=== PATIENT | female | born 1955 | race Caucasian/White ===

== ENCOUNTER 2018-07-11 11:52 | Emergency (ER) | payer MEDICARE, BC ==
[2018-07-11] MEDS ORDERED: Ondansetron 4 MG/2 ML SDV IVPUSH ONE (12:27)
[2018-07-11] MEDS ORDERED: Sodium Chloride 0.9% 1,000 ML IV SCH (12:30)
--- NOTE | 2018-07-11 12:31 | EDM.PDOC ---
ED HPI GENERAL MEDICAL PROBLEM - General Chief Complaint: Syncope Stated Complaint: [facility] Time Seen by Provider: 07/11/18 12:20 Source of Information: Reports: Patient, Family (spouse) History Limitations: Reports: No Limitations - History of Present Illness INITIAL COMMENTS - FREE TEXT/NARRATIVE: 63-year-old female presents to the ED per [facility]. The history suggests that she went to the [facility] this morning for routine checkup primarily for fasting blood work for cholesterol and blood sugars. She was sitting up in the chair in the lab at about 1015 hrs. and had multiple pokes and only half as much blood as required was obtained. During this time she started to feel very unwell with lightheadedness dizziness a feeling of spinning and she asked them to stop the phlebotomy. She then got very diaphoretic sweaty and nearly lost consciousness. I.e. near syncope. They were able to get her to a gurney but every time she tried to sit up she got a head barillas pressure discomfort and associated nausea. Blood pressure apparently dropped as low as 65 systolic likely from the increased vagal tone. Paramedics were called and an IV was established in clinic. She socially he has had about 800 mils of normal saline infused and is feeling somewhat better. Still feels shaky and weak likely from adrenaline surge. She is still mildly nauseated. She feels very thirsty. Note she has a prediabetic and takes metformin 500 mg twice daily. She has been fasting since essentially yesterday at noon. She had a fudgesickle and an apple for supper last night. En route to the hospital she felt like she was going to lose control of her bowels for a while as well. This is now gone away. She reports she fainted once in the past after donating blood. This occurred after she given the full bag of blood she had a syncopal event. Onset: Today Onset Date: 07/11/18 Onset Time: 10:45 Duration: Minutes: Location: Reports: Generalized (Near syncopal event after multiple attempts at phlebotomy in [facility] Quality: Reports: Other (Associated nausea shakiness feeling like her bowels are going to move head pressure/headache when she sits up.) Severity: Moderate Improves with: Reports: Other (1 still with eyes closed seems to be helped the best.) Worsens with: Reports: Other (Sitting up and movement seem to make things worse) Context: Reports: Other (Symptoms developed well multiple attempts at phlebotomy were being done by earth science laboratory technician in [facility] Denies: Activity, Exercise, Lifting, Sick Contact, Trauma Associated Symptoms: Reports: Confusion, Headaches, Loss of Appetite, Malaise, Nausea/Vomiting, Weakness. 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 below) (No medications) - Related Data Allergies Allergy/AdvReac Type Severity Reaction Status Date / Time No Known Allergies Allergy Verified 07/11/18 12:05 Home Meds: Home Meds Aspirin [Aspirin EC] 325 mg PO DAILY 07/11/18 [History] Cholecalciferol (Vitamin D3) [Vitamin D3] 2,000 mg PO DAILY 07/11/18 [History] Cyanocobalamin (Vitamin B-12) [Vitamin B12] 5,000 mcg SL DAILY 07/11/18 [History ] Fish Oil/Kerby-3 Fatty Acids [Fish Oil 1,000 MG] 1,000 mg PO DAILY 07/11/18 [ History] Lutein 20 mg PO DAILY 07/11/18 [History] Magnesium Citrate 150 mg PO DAILY 07/11/18 [History] Vitamin B6-pyridOXINE 100 mg PO DAILY 07/11/18 [History] metFORMIN HCl [Metformin HCl] 500 mg PO BID 07/11/18 [History] Past Medical History Cardiovascular History: Reports: High Cholesterol, Hypertension Endocrine/Metabolic History: Reports: Diabetes, Type II (Prediabetic at this time according to the patient. Taking metformin 500 mg twice a day.), Osteopenia , Vitamin D Deficiency Hematologic History: Reports: B12 Deficiency Social & Family History - Living Situation & Occupation Living situation: Reports: Occupation: Unemployed ED ROS GENERAL - Review of Systems Review Of Systems: See Below Constitutional: Reports: Malaise, Weakness, Fatigue, Diaphoresis, Decreased Appetite, Other (Still feels shaky and mildly nauseated.) Respiratory: Denies: Shortness of Breath, Wheezing, Pleuritic Chest Pain, Cough , Sputum Cardiovascular: Reports: Lightheadedness, Other (Near syncopal event this morning which was likely vasovagal in origin as she was being pulled multiple times by rope twisting machine operator trying to obtain blood sample in [facility] Denies: Chest Pain, Blood Pressure Problem, Claudication, Dyspnea on Exertion, Edema, Orthopnea Endocrine: Reports: Fatigue GI/Abdominal: Reports: Decreased Appetite, Nausea. Denies: Vomiting : Reports: No Symptoms Musculoskeletal: Reports: No Symptoms Skin: Reports: Other (Apparently was very pallid and diaphoretic when paramedics arrived) Neurological: Reports: Confusion, Dizziness, Tremors (Feels shaky.), Weakness, Other. Denies: Headache, Numbness, Tingling Psychiatric: Reports: No Symptoms Hematologic/Lymphatic: Reports: No Symptoms Immunologic: Reports: No Symptoms - Physical Exam Exam: See Below Exam Limited By: No Limitations General Appearance: Alert, WD/WN, Anxious (Remains quite anxious.), Moderate Distress Eye Exam: Bilateral Eye: Normal Inspection, PERRL Throat/Mouth: Normal Inspection, Normal Lips, Normal Teeth, Normal Oropharynx, Other Head Exam: Atraumatic (Tongue is mildly dry), Normocephalic Neck: Normal Inspection, Supple, Non-Tender, Full Range of Motion. No: Carotid Bruit, Lymphadenopathy (L), Lymphadenopathy (R) Respiratory/Chest: No Respiratory Distress, Lungs Clear, Normal Breath Sounds, No Accessory Muscle Use Cardiovascular: Normal Peripheral Pulses, Regular Rate, Rhythm, No Edema, No Gallop, No Murmur, No Rub GI/Abdominal: Normal Bowel Sounds, Soft, Non-Tender, No Organomegaly, No Abnormal Bruit, No Mass, Pelvis Stable Neuro Exam (Abbreviated): Alert, Oriented, CN II-XII Intact, Normal Cognition, No Motor/Sensory Deficits Extremities: Normal Inspection, Normal Range of Motion, Non-Tender, Normal Capillary Refill Psychiatric: Anxious Skin Exam: Warm, Dry, Intact, Normal Color, No Rash EKG INTERPRETATION EKG Date: 07/11/18 Time: 12:53 Rhythm: NSR Rate (Beats/Min): 69 Verdigre: LAD-Left Verdigre Deviation (Mild left axis deviation of -19) P-Wave: Present QRS: Other (RSR prime wave V1 normal variant.) ST-T: Normal QT: Normal EKG Interpretation Comments: Borderline ECG Course - Vital Signs Last Recorded V/S: Last Vital Signs Temp 35.8 C 07/11/18 11:52 Pulse 60 07/11/18 11:52 Resp 16 07/11/18 11:52 BP 110/77 07/11/18 11:52 Pulse Ox 97 07/11/18 11:52 Orthostatic Blood Pressure [ 131/66 Standing] Orthostatic Blood Pressure [ 128/62 Sitting] Orthostatic Blood Pressure [ 112/56 Supine] - Orders/Labs/Meds Orders: Active Orders 24 hr Category Date Time Status Blood Glucose Check, Bedside [RC] ONETIME Care 07/11/18 12:41 Active EKG Documentation Completion [RC] STAT Care 07/11/18 12:33 Active Sodium Chloride 0.9% [Normal Saline] 1,000 ml Med 07/11/18 12:30 Active IV ASDIRECTED Medication Orders Sodium Chloride (Normal Saline) 1,000 mls @ 999 mls/hr IV ASDIRECTED SAM Labs: Laboratory Tests 07/11/18 Range/Units 12:45 POC Glucose 94 (80-115) mg/dL Meds: Medications Generic Name Dose Route Start Last Admin Trade Name Freq PRN Reason Stop Dose Admin Sodium Chloride 1,000 mls @ 999 mls/hr 07/11/18 12:30 Normal Saline IV ASDIRECTED SAM Discontinued Medications Generic Name Dose Route Start Last Admin Trade Name Freq PRN Reason Stop Dose Admin Ondansetron HCl 4 mg 07/11/18 12:27 07/11/18 12:38 Zofran IVPUSH 07/11/18 12:28 4 mg ONETIME ONE Administration - Radiology Interpretation Free Text/Narrative:: 63-year-old female presents the ED after a near syncopal event occurred in the [facility] this morning where she was receiving multiple needle sticks for phlebotomy. They didn't get enough blood to complete all of the tests and she states she was poked about 7 times. During this event she started to feel very unwell with nausea broke out in a sweat vision became DM and blurred and she felt the room spinning. She then had to lie down flat and remembers everything therefore she did not lose consciousness completely. Then able to move her over to a gurney. She continued to feel unwell today nausea without any vomiting. She drank 2 glasses of water while on the gurney. Blood pressure apparently dropped to as low 65 systolic likely from high vagal tone. Paramedics were called and they were able to get an IV in the right dorsal hand. Patient at the time I'd seen her in the ED has received close to 800 mils of normal saline is feeling markedly improved. She still feels mildly shaky likely from adrenaline surge and mildly nauseated. She will be given water to drink and crackers. Zofran 4 mg IV. I'm not going to do any labs since I'm convinced this is all due to increased vagal tone. Bedside blood sugar will be ordered and an ECG. - Re-Assessments/Exams Free Text/Narrative Re-Assessment/Exam: 07/11/18 13:23 patient is completed liter of IV fluids. She is not orthostatic and is feeling much improved. Nurses also gave her in addition to crackers and fluids some pudding which she kept down without any problem. The only medication I had administered with Zofran 4 mg IV. Her color is improved her blood pressure is stable and her vital signs are stable. She will therefore be discharged home in the care of her . Departure - Departure Time of Disposition: 13:20 Disposition: Home, Self-Care 01 Condition: Fair Clinical Impression: Vasovagal near syncope - Discharge Information *PRESCRIPTION DRUG MONITORING PROGRAM REVIEWED*: Not Applicable *COPY OF PRESCRIPTION DRUG MONITORING REPORT IN PATIENT RAISSA: Not Applicable Instructions: Near-Syncope, [id number] Referrals: Yadira Storm NP [Primary Care Provider] - Forms: ED Department Discharge Additional Instructions: Evaluation in the emergency him today in regards to near syncopal event that occurred while in the [facility] this morning after multiple attempts at phlebotomy to try and obtain blood for sampling. Combined with prolonged fasting and likely a low blood sugar he developed only called vasovagal near-syncope. Is Macdonald with a combination of pain, low blood pressure and low blood sugar this precipitated the vagal reflex which lowers her heart rate in the lower sugar blood pressure associated with nausea, diaphoresis or sweating dizziness, lightheadedness and sometimes complete loss of consciousness. Your symptoms improve when she got a liter of IV fluids and a little bit of food to increase your blood sugar. Blood sugar in the ED was 94. ECG tracing was normal. Blood pressure remained in the normal range while in the ED at 122/55. Just going and having 7-8 at this time and plenty of fluids today such as Gatorade or Powerade even though it contains a little bit of sugar. This is very similar to IV fluid replacement therapy. You're going to have blood work faster only 6 hours before having the test carried out. - My Orders Last 24 Hours: My Active Orders 07/11/18 12:30 Sodium Chloride 0.9% [Normal Saline] 1,000 ml IV ASDIRECTED 07/11/18 12:33 EKG Documentation Completion [RC] STAT 07/11/18 12:41 Blood Glucose Check, Bedside [RC] ONETIME - Assessment/Plan Last 24 Hours: My Active Orders 07/11/18 12:30 Sodium Chloride 0.9% [Normal Saline] 1,000 ml IV ASDIRECTED 07/11/18 12:33 EKG Documentation Completion [RC] STAT 07/11/18 12:41 Blood Glucose Check, Bedside [RC] ONETIME
== END 2018-07-11 13:30 | disposition home or self-care (01) ==
LOC: SUPCPDRO 11:52 → JD.ED 11:52
DX: R55 Syncope and collapse (principal); I10 Essential (primary) hypertension; E11.9 Type 2 diabetes mellitus without complications; Z79.82 Long term (current) use of aspirin; Z79.84 Long term (current) use of oral hypoglycemic drugs; Z79.899 Other long term (current) drug therapy
CPT/HCPCS: 82962; 93005; 96374; 99284; J2405; 93010